=== PATIENT | female | born 1950 | race Caucasian/White ===

== ENCOUNTER → 2016-07-29 09:38 | Outpatient (CLI) | payer OTHER ==
[2014-12-04 08:21] VITALS: BMI 37.0
[~2016-07-29 09:38] MED LIST: ALDACTONE25 MG PO; ESTRACE1 MG PO; PLAQUENIL200 MG PO; PROTONIX40 MG PO
== END | disposition home or self-care (01) ==
LOC: D.US 09:38
DX: R94.5 Abnormal results of liver function studies (principal)

== ENCOUNTER → 2017-12-06 10:09 | Outpatient (CLI) | payer MEDICARE, OTHER ==
[2014-12-04 08:21] VITALS: BMI 37.0
== END | disposition home or self-care (01) ==
LOC: D.CT 10:09
DX: E16.1 Other hypoglycemia (principal)

== ENCOUNTER → 2017-12-07 10:29 | Outpatient (CLI) | payer MEDICARE, OTHER ==
[2014-12-04 08:21] VITALS: BMI 37.0
== END | disposition home or self-care (01) ==
LOC: D.CT 10:29
DX: R91.8 Other nonspecific abnormal finding of lung field (principal)

== ENCOUNTER 2018-12-26 13:30 | Outpatient (CLI) | payer MEDICARE, OTHER ==
[2014-12-04 08:21] VITALS: BMI 37.0
== END 2018-12-26 14:00 | disposition home or self-care (01) ==
LOC: D.MAMMO 13:30
PROVIDERS: ATTEND Family Medicine
DX: Z12.31 Encounter for screening mammogram for malignant neoplasm of breast (principal)

== ENCOUNTER → 2019-03-15 18:55 | Outpatient (CLI) | payer MEDICARE, OTHER ==
[2014-12-04 08:21] VITALS: BMI 37.0
== END | disposition home or self-care (01) ==
LOC: D.LABREF 18:55
PROVIDERS: ATTEND Orthopaedic Surgery
DX: M17.11 Unilateral primary osteoarthritis, right knee (principal)

== ENCOUNTER 2019-03-16 13:47 | Inpatient (IN) | payer MEDICARE, OTHER ==
[~2019-03-16] VITALS: Ht 170.2 cm; Wt 102.3 kg
[2019-03-30] MEDS ORDERED: CARDURA2 MG PO (13:51)
[2019-03-30] MEDS ORDERED: VITAMIN D250000 UNIT PO (13:51)
[2019-03-30] MEDS ORDERED: MOBIC7.5 MG PO (13:52)
[2019-03-30] MEDS ORDERED: TRAZODONE HCL150 MG PO (13:53)
[2019-03-30] MEDS ORDERED: ZOLOFT100 MG PO (13:53)
[2019-03-30] MEDS ORDERED: HYZAAR 50-12.51 TAB PO (14:30)
[2019-04-10] VITALS (10 sets, daily range): BP systolic 104–144; BP diastolic 59–76; Ht 170.2 cm; Wt 102.3 kg
[2019-04-10 08:00] LABS: BASOPHILS 0.4 % (0-2); EOSINOPHILS 2.5 % (0-7); HEMATOCRIT 39.2 % (36.0-48.0); HEMOGLOBIN 12.9 g/dL (12-16); IMMATURE GRANULOCYTES 0.4 % (0-5); LYMPHOCYTES 26.3 % (15-50); MCH 29.9 pg (26.0-34.0); MCHC 32.9 g/dL (31.0-37.0); MCV 90.7 fL (80.0-100.0); MEAN PLATELET VOLUME 10.3 fL (7.4-10.4); MONOCYTES 7.2 % (2-11); NEUTROPHILS 63.2 % (40-80); PLATELET COUNT 162 10x3/uL (130-400); RBC 4.32 10x6/uL (4.00-5.40); RDW 14.3 % (11.5-14.5); WBC 5.7 10x3/uL (4.8-10.8)
[2019-04-10 08:14] LABS: ANION GAP 11.2 mmol/L (8-16); CALCIUM 8.4 mg/dL (8.5-10.1); CARBON DIOXIDE 25.8 mmol/L (21.0-32.0); CREATININE - SERUM 1.1 mg/dL (0.6-1.3)
[2019-04-10 08:17] LABS: INR 1.16 (0.85-1.17); PROTIME 14.3 SECONDS (11.6-15.0)
[2019-04-10 08:18] LABS: APTT 29.6 SECONDS (22.8-39.4)
[2019-04-10 09:05] LABS: APPEARANCE CLEAR (CLEAR); BILIRUBIN NEGATIVE (NEGATIVE); COLOR YELLOW (YELLOW); GLUCOSE NEGATIVE (NEGATIVE); KETONE NEGATIVE (NEGATIVE); NITRITE NEGATIVE (NEGATIVE); PROTEIN NEGATIVE (NEGATIVE); SPECIFIC GRAVITY 1.015 (1.005-1.020); UROBILINOGEN NORMAL (NORMAL)
--- NOTE | 2019-04-10 11:50 | NUR ---
PATIENT ADMITTED TO ROOM 2226. ADMISSION COMPLETE. BED ALARM ON. AT BEDSIDE. WILL CONTINUE TO MONITOR.
--- NOTE | 2019-04-10 12:36 | NUR ---
RESTING IN BED. POST OP VITALS REMAIN STABLE. PATIENT SLEEPING. INCENTIVE SPIROMETER IN ROOM. WILL PROVIDE EDUCATION WHEN PATIENT AWAKE AND ALERT. BED ALARM ON. WILL CONTINUE TO MONITOR.
--- NOTE | 2019-04-10 12:51 | NUR ---
SCD PLACED ON PATIENT'S LEFT LEG AND PLEXI BOOT PLACED ON RIGHT FOOT.
--- NOTE | 2019-04-10 14:28 | OP ---
PATIENT NAME: CLAUDIA REYES MEDICAL RECORD: [id number] :54 LOCATION: D.2226 ADMISSION DATE:04/10/19 SURGEON: YAZAN WARE DO DATE OF OPERATION: 04/10/2019 PROCEDURE PERFORMED: Right total knee arthroplasty. PREOPERATIVE DIAGNOSIS: Right knee osteoarthritis. POSTOPERATIVE DIAGNOSIS: Right knee osteoarthritis. INDICATIONS: Ms. Reyes is a 68-year-old female who has had knee pain for quite some time. She had injections and MRIs and x-rays. 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 I informed her that there is nothing we could do about that and other than replacing the knee, injection has worked for a short amount of time and she tried other forms of nonoperative treatments to no avail. She was informed of the risks including infection, bleeding, damage to nerves and vessels, fracture, need for further surgery, implant failure and blood clots, and even and she signed the consent. SURGEON: Yazan Ware DO DESCRIPTION OF PROCEDURE: I was assisted by Justin Madrid, advanced nurse practitioner, he assisted with retraction and closing. This could not have been performed without him. The patient was given 80 mg of gentamicin and a gram of TXA and 2 grams of Ancef preoperatively. She was then given a block by anesthesia in the preoperative area and taken to the operative suite, laid in supine position, given general anesthetic and LMA was placed. The right lower extremity was then prepped and draped in sterile fashion. Timeout was performed, everyone was in agreeance with the correct side, site, patient and procedure. The incision was then marked out of the anterior knee and covered in Ioban. Incision then began with a 10 blade scalpel down to the capsule. A fresh 10 blade was then used to do a medial parapatellar approach to the capsule and the patella was then everted. Part of fat pad was removed and the ACL was removed. We then milled the patella down and sized it to be 25. Knee was then flexed up and the femoral canal was entered and the distal femur alignment guide was pinned in place and the distal femur was cut. The proximal tibia was then exposed and cut and menisci were removed. The knee was then brought to extension. Any menisci remaining was then removed with a lamina rubber cutter and shape carver. Using a lamina rubber cutter and shape carver and a pickup and Bovie, any bleeding was coagulated with the Aquamantys. At that time, a 10 extension block then fit very well, was balanced well medial and lateral stress. The knee was then flexed up and the femur was sized to be 60. We then drilled the holes and the 4-in-1 cutting block was used to cut the femur after ensuring it would not notch with an yoly wing. We then removed the bone and 60 femur trial was impacted on and the tibial tray with poly was floated into place and rotation was marked. We then drilled the holes in the patella through the guide and the lug holes on the femur. The femur was then removed. The tibia was exposed and sized to be 67. This was drilled and punched, extra hole was put in the tibia for cement mantle preparation and then irrigated that out. Cement was mixed and it was placed in the tibia and on the implant and then impacted inti place. Excess cement was removed. The femur was then impacted on and a 10 poly was put in between the tibia and the femur, brought to extension and the holes for the patella were irrigated out and curetted out and then suctioned out and then put cement on the OPERATIVE REPORT [id number] CLAUDIA REYES poly for the patella and also on the patella itself and then squeezed into place. Excess cement was removed. We then irrigated the knee and then put the 10% povidone iodine solution with saline into the knee and let it sit for 3 minutes and this was irrigated out. Once irrigated out well with over a liter of normal saline, the poly was sized and a 12 fit very well. Once the 12 was sized, the 12 E poly deep dish or anterior stabilized bearing with poly was put in and then locked into place and it fit very well, cycled well in extension and flexion with good medial and lateral stability. We then gave another gram of TXA, irrigated out the knee put in Tavo, and vancomycin and tobramycin powder. Capsule was then closed with #2 Ethibond in a kiayeu-cj-mnrup fashion and then the skin was closed with 2-0 Vicryl interrupted fashion and there was ZipLine was placed on the knee. Adaptic, 4 x 4s, ABD, Webril, Bossman wrap were then placed on the knee. She was awakened and taken to recovery in stable condition with EDNA hose stocking up to the knee with blood loss approximately 200 mL. COMPLICATIONS: None. TRANSINT:[id number] Voice Confirmation ID: [id number] DOCUMENT ID: [id number] YAZAN WARE DO at 1428 CC: [id number] DICTATION DATE: 04/10/19 1031 PASSENGER TIRE INSPECTOR: 04/10/19 1326 ADM IN [place] [id number] [place] [id number]
--- NOTE | 2019-04-10 18:10 | NUR ---
CPM PLACED ON PATIENT.
--- NOTE | 2019-04-10 18:41 | NUR ---
RESTING IN BED. DENIES NEEDS. BED LOW. FALL PRECAUTIONS IN PLACE. CALL TO AND PERSONAL ITEMS IN REACH. WILL CONTINUE TO MONITOR.
--- NOTE | 2019-04-11 01:12 | NUR ---
I have reviewed this patient and I concur with the Shift Assessment completed by the Licensed Practical Nurse today this shift.
[2019-04-11 01:30] VITALS: BP 110/57
--- NOTE | 2019-04-11 01:46 | NUR ---
PT RESTING IN BED. EYES CLOSED. NO SIGNS OF DISTRESS. AROUSES TO VERBAL STIMULI. PT STATES NO PROBLEMS AT THIS TIME. IV SITE LT HAND DRESSING CLEAN DRY AND INTACT. NO SIGNS OF INFECTION OR INFULTRATION. LUNG SOUNDS CLEAR. BOWEL SOUNDS ACTIVE. RT KNEE DRESSING CLEAN DRY AND INTACT. SCDS EDNA HOSE PLEXI BOOT ON. WILL CONTINUE PLAN OF CARE. CALL LIGHT IN REACH. BED LOWERED AND LOCKED. BED RAILS UPX2.
[2019-04-11 05:14] VITALS: BP 106/49
[2019-04-11 06:45] LABS: BASOPHILS 0.2 % (0-2); EOSINOPHILS 0.1 % (0-7); HEMOGLOBIN 12.1 g/dL (12-16); IMMATURE GRANULOCYTES 0.3 % (0-5); MCH 29.8 pg (26.0-34.0); MCHC 32.7 g/dL (31.0-37.0); MCV 91.1 fL (80.0-100.0); MEAN PLATELET VOLUME 9.8 fL (7.4-10.4); MONOCYTES 9.2 % (2-11); NEUTROPHILS 82.2 % (40-80); PLATELET COUNT 173 10x3/uL (130-400); RBC 4.06 10x6/uL (4.00-5.40); RDW 14.2 % (11.5-14.5)
[2019-04-11 06:51] LABS: WBC 11.2 10x3/uL (4.8-10.8)
[2019-04-11 07:08] LABS: ALBUMIN 3.3 g/dL (3.4-5.0); ANION GAP 12.4 mmol/L (8-16); BILIRUBIN - TOTAL 0.59 mg/dL (0.2-1.3); CALCIUM 8.3 mg/dL (8.5-10.1); CARBON DIOXIDE 28.1 mmol/L (21.0-32.0); CREATININE - SERUM 1.2 mg/dL (0.6-1.3); POTASSIUM - SERUM 4.5 mmol/L (3.5-5.1); PROTEIN - SERUM 6.5 g/dL (6.4-8.2)
[2019-04-11 07:32] VITALS: BP 119/51
--- NOTE | 2019-04-11 08:00 | NUR ---
ALERT AND ORIENTED. LUNGS CLEAR BILATERALLY. HEART SOUNDS S1 AND S2 HEARD IN ALL RUBIO. BOWEL SOUNDS ACTIVE X 4. INCISION TO RIGHT KNEE WITH DRSG C/D/I. USING CPM. IV TO LEFT HAND PATENT WITHOUT REDNESS. DENIES NEEDS. BED LOW. FALL PRECAUTIONS IN PLACE. CALL TO AND PERSONAL ITEMS IN REACH. WILL CONTINUE TO MONITOR.
[2019-04-11 16:05] VITALS: BP 143/50
--- NOTE | 2019-04-11 18:09 | NUR ---
PATIENT SON CALLED AND STATED PATIENT HAD BEEN TRYING TO CALL TO USE BATHROOM FOR "AN HOUR." PATIENT CALL LIGHT NOT ON. WENT IN PATIENT ROOM. STATES WAS "PUSHING THE BUTTON ON THE BED." EDUCATION PROVIDED ON USE OF CALL LIGHT ON REMOTE. VERBALIZED UNDERSTANDING. ASSISTED ON AND OFF BEDPAN. LARGE VOID NOTED. WILL CONTINUE TO MONITOR.
[2019-04-11 19:30] VITALS: BP 152/62
[2019-04-12 00:30] VITALS: BP 152/68
--- NOTE | 2019-04-12 05:26 | NUR ---
I have reviewed this patient and I concur with the Shift Assessment completed by the Licensed Practical Nurse today this shift.
[2019-04-12 05:27] LABS: BASOPHILS 0.2 % (0-2); EOSINOPHILS 0.5 % (0-7); HEMATOCRIT 36.1 % (36.0-48.0); HEMOGLOBIN 11.9 g/dL (12-16); IMMATURE GRANULOCYTES 0.6 % (0-5); LYMPHOCYTES 24.3 % (15-50); MCH 29.8 pg (26.0-34.0); MCV 90.3 fL (80.0-100.0); MEAN PLATELET VOLUME 10.4 fL (7.4-10.4); MONOCYTES 10.7 % (2-11); NEUTROPHILS 63.7 % (40-80); PLATELET COUNT 161 10x3/uL (130-400); RDW 14.3 % (11.5-14.5); WBC 8.6 10x3/uL (4.8-10.8)
[2019-04-12 05:30] VITALS: BP 165/66
[2019-04-12 05:46] LABS: ANION GAP 12.5 mmol/L (8-16); BILIRUBIN - TOTAL 1.02 mg/dL (0.2-1.3); CALCIUM 8.1 mg/dL (8.5-10.1); CARBON DIOXIDE 28.5 mmol/L (21.0-32.0); PROTEIN - SERUM 6.4 g/dL (6.4-8.2)
--- NOTE | 2019-04-12 05:55 | NUR ---
PT RESTING IN BED. EYES CLOSED. NO SIGNS OF DISTRESS. BREATHING EVEN AND UNLABORED. IV SITE LT HAND DRESSING CLEAN DRY AND INTACT. NO SIGNS OF INFECTION. WILL CONTINUE PLAN OF CARE. CALL LIGHT IN REACH. BED LOWERED AND LOCKED. BED RAILS UPX2.
--- NOTE | 2019-04-12 07:10 | NUR ---
PT RESTING IN BED. NO SIGNS OF DISTRESS. IV LT HAND PATENT NO REDNESS OR TENDERNESS. INCISION TO RIGHT KNEE. DRESSING CLEAN AND INTACT. CPM ON. DENIES ANY FURTHER NEED AT THIS TIME. CALL LIGHT IN REACH. BED LOW POSITION. NO FAMILY AT BEDSIDE AT THIS TIME.
[2019-04-12] MEDS ORDERED: OXYCODONE HCL5 M1 PO (07:54)
[2019-04-12] MEDS ORDERED: VISTARIL50 MG PO (07:55)
[2019-04-12] MEDS ORDERED: KEFLEX500 MG PO (07:55)
[2019-04-12] MEDS ORDERED: ELIQUIS2.5 MG PO (07:56)
--- NOTE | 2019-04-12 09:08 | MORECARE ---
CASE MANAGEMENT DISCHARGE SUMMARY PATIENT: CLAUDIA REYES UNIT: [id number] ADM DATE: 04/10/19 AGE: 68 : 52 SEX: F ROOM/BED: D.2226 AUTHOR: MAYDA,DOC PHYSICIAN: REFERRING PHYSICIAN: RONALD WARE DO DATE OF SERVICE: 04/12/19 Discharge Plan Patient Name: CLAUDIA REYES Facility: [facility]:[place] : 1950 Planned Disposition: Home Anticipated Discharge Date: 04/12/19 Discharge Date: Expected LOS: 2 Initial Reviewer: [email or web address] Initial Review Date: 04/12/2019 Generated: 04/12/19 10:07 am Comments DCP- Discharge Planning Updated by [email or web address]: Joycelyn Lopez on 04/12/19 8:[address] Patient Name: CLAUDIA REYES Admission Status: Elective Accout number: [id number] Admission Date: 04-10-2019 : 1950 Admission Diagnosis: Attending: RONALD WARE Current LOS: 2 Anticipated DC Date: 04-12-2019 Planned Disposition: Home Primary Insurance: MEDICARE A & B Discharge Planning Comments: CM met with patient to complete initial dc planning assessment. CM educated patient on the CM role and verbal consent given by patient to complete assessment. Patient lives at home with her spouse. At discharge patient plans to return and feels this is a safe discharge. CM discussed availability of home health, rehab services, and medical equipment. Patient states she already has her walker, CPM and ice machine that Dr. Ware had delivered ahead of time. States she would like to do her OP PT at [facility] in [facility]. I called [facility] and spoke with tiffanie Carreon and clinical faxed. Her first outpatient visit will be Tuesday at 2PM. CM will continue to follow and will assist as needed with dc plans/needs. Brief Writer: Joycelyn Lopez DCPIA - Discharge Planning Initial Assessment Updated by [email or web address]: Joycelyn Lopez on 04/12/19 9:04 am * Is the patient Alert and Oriented? Yes * How many steps to enter\exit or inside your home? 2/0 * PCP Dr. Harding * Pharmacy [facility] * Preadmission Environment Home with Family * ADLs Independent * Equipment Other Walker * Other Equipment CPM Ice machine * List name and contact numbers for known caregivers / representatives who currently or will assist patient after discharge: Adam Reyes - [facility] - [phone] * Verbal permission to speak to the caregivers and representatives has been obtained from the patient. Yes * Community resources currently utilized None * Additional services required to return to the preadmission environment? Yes * Can the patient safely return to the preadmission environment? Yes * Has this patient been hospitalized within the prior 30 days at any hospital? No External Providers External Provider: OTHER-OTHER Next Contact Date: Service Request Date: Service Type: Resolution: Reviewer: Comments: Patient Name: CLAUDIA REYES Page [phone] at 0908 All edits/amendments must be made on the electronic document DICTATION DATE: 04/12/19906 ACREAGE REPORTER: ANGELA 04/12/19906 RPT#: [id number] DC DATE: STATUS: ADM IN [facility] [address] [place] [address] END OF REPORT
[2019-04-12 09:20] VITALS: BP 166/77
--- NOTE | 2019-04-12 11:37 | NUR ---
DISCHARGE INSTRUCTIONS GIVEN. SEEMS TO UNDERSTAND INSTRUCTIONS. IV OUT TIP INTACT. DRESSING CHANGE PER DR ORDER. LEFT WITH HOSPITAL STAFF TO GO HOME WITH .
--- NOTE | 2019-04-12 12:23 | MORECARE ---
CASE MANAGEMENT DISCHARGE SUMMARY PATIENT: CLAUDIA REYES UNIT: [id number] ADM DATE: 04/10/19 AGE: 68 : 52 SEX: F ROOM/BED: D.2226 AUTHOR: MAYDADOC PHYSICIAN: REFERRING PHYSICIAN: RONALD WARE DO DATE OF SERVICE: 04/12/19 Discharge Plan Patient Name: CLAUDIA REYES Facility: [facility]:[place] : 1950 Planned Disposition: Home Anticipated Discharge Date: 04/12/19 Discharge Date: 04/12/2019 Expected LOS: 2 Initial Reviewer: [email or web address] Initial Review Date: 04/12/2019 Generated: 04/12/19 1:23 pm Comments DCP- Discharge Planning Updated by [email or web address]: Joycelyn Lopez on 04/12/19 8:[address] Patient Name: CLAUDIA REYES Admission Status: Elective Accout number: [id number] Admission Date: 04-10-2019 : 1950 Admission Diagnosis: Attending: RONALD WARE Current LOS: 2 Anticipated DC Date: 04-12-2019 Planned Disposition: Home Primary Insurance: MEDICARE A & B Discharge Planning Comments: CM met with patient to complete initial dc planning assessment. CM educated patient on the CM role and verbal consent given by patient to complete assessment. Patient lives at home with her spouse. At discharge patient plans to return and feels this is a safe discharge. CM discussed availability of home health, rehab services, and medical equipment. Patient states she already has her walker, CPM and ice machine that Dr. Ware had delivered ahead of time. States she would like to do her OP PT at [facility]. I called [facility] and spoke with tiffanie Carreon and clinical faxed. Her first outpatient visit will be Tuesday at 2PM. CM will continue to follow and will assist as needed with dc plans/needs. Admitted Attorneys: Joycelyn Lopez DCPIA - Discharge Planning Initial Assessment Updated by [email or web address]: Joycelyn Lopez on 04/12/19 9:04 am * Is the patient Alert and Oriented? Yes * How many steps to enter\exit or inside your home? 2/0 * PCP Dr. Harding * Pharmacy [facility] * Preadmission Environment Home with Family * ADLs Independent * Equipment Other Walker * Other Equipment CPM Ice machine * List name and contact numbers for known caregivers / representatives who currently or will assist patient after discharge: Adam Reyes - spouse - [phone] * Verbal permission to speak to the caregivers and representatives has been obtained from the patient. Yes * Community resources currently utilized None * Additional services required to return to the preadmission environment? Yes * Can the patient safely return to the preadmission environment? Yes * Has this patient been hospitalized within the prior 30 days at any hospital? No Last DP export: 04/12/19 8:07 am Patient Name: CLAUDIA REYES Page [phone] at 1223 All edits/amendments must be made on the electronic document DICTATION DATE: 04/12/19 1223 SALES LEDGER ADMINISTRATOR: ANGELA 04/12/19 1223 RPT#: [id number] DC DATE:04/12/19 STATUS: DIS IN [facility] [address] [place] [address] END OF REPORT
== END 2019-04-12 11:38 | disposition home or self-care (01) | DRG 470 ==
LOC: D.SDCHOLD 04-02 10:00 → D.MS 04-10 06:57 → D.SDCHOLD 04-10 06:57 → D.MS 04-10 11:19 → D.SDCHOLD 04-10 11:45 → D.MS 04-12 11:38
PROVIDERS: Anesthesiology; Family Medicine; ADMIT Orthopaedic Surgery; ATTEND Orthopaedic Surgery
PROC: 0SRC0J9 Replacement of Right Knee Joint with Synthetic Substitute, Cemented, Open Approach (ICD-10-PCS; principal; 2019-04-10 11:45)
DX: M17.11 Unilateral primary osteoarthritis, right knee (principal); D62 Acute posthemorrhagic anemia; I10 Essential (primary) hypertension; E66.9 Obesity, unspecified; Z68.35 Body mass index [BMI] 35.0-35.9, adult

== ENCOUNTER → 2019-04-02 08:00 | Outpatient (CLI) | payer MEDICARE, OTHER ==
[2014-12-04 08:21] VITALS: BMI 37.0
[~2019-04-02 08:00] MED LIST changes: +CARDURA2 MG PO; +HYZAAR 50-12.51 TAB PO; +MOBIC7.5 MG PO; +TRAZODONE HCL150 MG PO; +VITAMIN D250000 UNIT PO; +ZOLOFT100 MG PO
[2019-04-02 12:26] LABS: APPEARANCE HAZY (CLEAR); BILIRUBIN NEGATIVE (NEGATIVE); COLOR DK YELLOW (YELLOW); GLUCOSE NEGATIVE (NEGATIVE); KETONE NEGATIVE (NEGATIVE); NITRITE NEGATIVE (NEGATIVE); PROTEIN NEGATIVE (NEGATIVE); SPECIFIC GRAVITY 1.015 (1.005-1.020)
[2019-04-02 12:29] LABS: BACTERIA MODERATE /hpf (NEGATIVE); EPITHELIAL CELLS 0-5 /hpf (0-5); RED CELLS - URINE NONE SEEN /hpf (0-5); WHITE CELLS - URINE 0-5 /hpf (NEGATIVE)
--- NOTE | 2019-04-02 12:35 | NUR ---
1235-UA results called to Dr. Florian office.
--- NOTE | 2019-04-02 12:36 | NUR ---
1225-UA results called to Dr. Florian office.
== END | disposition home or self-care (01) ==
LOC: D.PAN 08:00
PROVIDERS: ATTEND Orthopaedic Surgery
DX: M17.11 Unilateral primary osteoarthritis, right knee (principal)

== ENCOUNTER → 2020-09-15 12:15 | Outpatient (CLI) | payer MEDICARE ==
[2019-04-10 11:55] VITALS: BMI 35.3
[~2020-09-15 12:15] MED LIST changes: +ELIQUIS2.5 MG PO; +KEFLEX500 MG PO; +OXYCODONE HCL5 M1 PO; +VISTARIL50 MG PO
== END ==
LOC: D.MAMMO 11:15
PROVIDERS: ATTEND Family Medicine
DX: Z12.31 Encounter for screening mammogram for malignant neoplasm of breast (principal)